=== PATIENT | female | born 1985 | race Caucasian/White ===

== ENCOUNTER 2017-01-07 18:59 | Emergency (ER) | payer OTHER ==
[~2017-01-07] VITALS: Ht 157.5 cm; Wt 99.8 kg
[2017-01-07 22:35] VITALS: BP 144/102
== END 2017-01-07 22:35 | disposition home or self-care (01) ==
LOC: ED 18:59
DX: G43.909 Migraine, unspecified, not intractable, without status migrainosus (principal); R03.0 Elevated blood-pressure reading, without diagnosis of hypertension; R29.0 Tetany; Z79.899 Other long term (current) drug therapy; Z88.6 Allergy status to analgesic agent
CPT/HCPCS: 83880; J2765

== ENCOUNTER 2017-11-26 09:13 | Emergency (ER) | payer SELFPAY ==
[~2017-11-26] VITALS: Ht 157.5 cm; Wt 90.7 kg
[2017-11-26 09:16] VITALS: Ht 157.5 cm; Wt 90.7 kg
[2017-11-26 11:25] VITALS: BP 122/74
== END 2017-11-26 11:25 | disposition home or self-care (01) ==
LOC: ED 09:13
DX: S93.601A Unspecified sprain of right foot, initial encounter (principal); Z88.8 Allergy status to other drugs, medicaments and biological substances; W22.8XXA Striking against or struck by other objects, initial encounter; Y93.89 Activity, other specified; Y92.89 Other specified places as the place of occurrence of the external cause; Y99.8 Other external cause status

== ENCOUNTER 2018-05-02 15:46 | Emergency (ER) | payer MEDICAID ==
[~2018-05-02] VITALS: Ht 154.9 cm; Wt 101.8 kg
[2018-05-02 16:17] VITALS: BP 127/89; Ht 154.9 cm; Wt 101.8 kg
== END 2018-05-02 17:13 | disposition home or self-care (01) ==
LOC: ED 15:46
DX: R21 Rash and other nonspecific skin eruption (principal); Z88.5 Allergy status to narcotic agent
CPT/HCPCS: J1200; J7512

== ENCOUNTER 2018-05-23 17:49 | Emergency (ER) | payer MEDICAID ==
[~2018-05-23] VITALS: Ht 154.9 cm; Wt 101.6 kg
[2018-05-23 17:56] VITALS: Ht 154.9 cm; Wt 101.6 kg
[2018-05-23 19:25] LABS: UA SPECIFIC GRAVITY 1.015 (1.005-1.035); microscopic required? YES; urine erythrocyte NEGATIVE (NEGATIVE)
[2018-05-23 19:38] LABS: BASOPHIL % 0.4 % (0-2); PLATELET COUNT 263 x10^3mcL (130-400)
[2018-05-23 19:44] LABS: ALKALINE PHOSPHATASE 77 U/L (46-116); ALT/SGPT 31 U/L (14-59); AST/SGOT 19 U/L (15-37); BILIRUBIN TOTAL 0.3 mg/dL (0.20-1.00); CALCIUM 9.2 mg/dL (8.5-10.1); CARBON DIOXIDE 25.9 mmol/L (21-32); CHLORIDE SERUM 105 mmol/L (98-107); CREATININE SERUM 0.7 mg/dL (0.6-1.0); GFR1 > 60 mL/min; GLUCOSE SERUM 120 mg/dL (74-106); LIPASE 113 IU/L (73-393); POTASSIUM SERUM 3.6 mmol/L (3.5-5.1); SODIUM SERUM 138 mmol/L (136-145); TOTAL PROTEIN, SERUM 7.2 g/dL (6.4-8.2)
[2018-05-23 19:49] LABS: ALBUMIN 3.3 g/dL (3.4-5.0)
[2018-05-23 21:20] VITALS: BP 100/56
== END 2018-05-23 21:20 | disposition home or self-care (01) ==
LOC: ED 17:49
PROVIDERS: Emergency Medicine
DX: G44.209 Tension-type headache, unspecified, not intractable (principal); R55 Syncope and collapse; M54.5 Low back pain; E66.9 Obesity, unspecified; Z68.41 Body mass index [BMI] 40.0-44.9, adult; K80.80 Other cholelithiasis without obstruction; Z88.5 Allergy status to narcotic agent
CPT/HCPCS: J3490; J7030

== ENCOUNTER 2018-10-29 22:08 | Emergency (ER) | payer SELFPAY ==
[~2018-10-29] VITALS: Ht 157.5 cm; Wt 98.9 kg
[2018-10-29 22:15] VITALS: Ht 157.5 cm; Wt 98.9 kg
[2018-10-30] VITALS: BP 118/74
== END 2018-10-30 | disposition home or self-care (01) ==
LOC: ED 22:08
DX: N39.0 Urinary tract infection, site not specified (principal); Z90.49 Acquired absence of other specified parts of digestive tract; Z88.6 Allergy status to analgesic agent; Z88.5 Allergy status to narcotic agent

== ENCOUNTER 2019-10-06 22:05 | Emergency (ER) | payer OTHER ==
[~2019-10-06] VITALS: Ht 170.2 cm; Wt 99.8 kg
[2019-10-06 22:15] VITALS: Ht 170.2 cm; Wt 99.8 kg
[2019-10-07 01:01] VITALS: BP 124/84
== END 2019-10-07 01:01 | disposition home or self-care (01) ==
LOC: ED 22:05
DX: R51 Headache (principal); R53.1 Weakness; R42 Dizziness and giddiness; R20.2 Paresthesia of skin; Z88.5 Allergy status to narcotic agent; Z88.6 Allergy status to analgesic agent; Z90.49 Acquired absence of other specified parts of digestive tract
CPT/HCPCS: 87804; J0780; J3030; J7030